=== PATIENT | female | born 1970 | race African-American/Black ===

== ENCOUNTER 2018-10-30 13:15 | Emergency (ER) | payer BC ==
[~2018-10-30] VITALS: Ht 160 cm; Wt 103.2 kg
[2018-10-30 14:07] VITALS: Ht 160 cm; Wt 103.2 kg
[2018-10-30 16:45] VITALS: BP 124/93; PULSE 65; RESP 16
== END 2018-10-30 17:00 | disposition home or self-care (01) ==
LOC: E/R 13:15
DX: R20.2 Paresthesia of skin (principal); D72.829 Elevated white blood cell count, unspecified; F17.210 Nicotine dependence, cigarettes, uncomplicated; M79.661 Pain in right lower leg
CPT/HCPCS: 36415; 80048; 84484; 85025; 85610; 85730; 93005; 93970